=== PATIENT | male | born 1985 | race African-American/Black ===

== ENCOUNTER 2023-08-25 15:29 | Emergency (ER) | payer MEDICAID, SELFPAY ==
[2023-08-25 16:07] VITALS: BP 120/76; PULSE 88; RESP 20; TEMP 36.6; O2SAT 99; BMI 24.5
--- NOTE | 2023-08-25 16:16 | ED.GENADULT ---
HPI - General Adult General Chief complaint: Skin/Abscess/Foreign Body Stated complaint: Rash Time Seen by Provider: 08/25/23 19:11 Source: patient Mode of arrival: ambulatory History of Present Illness HPI narrative: Pt is a 37yo male who presents to the ED for evaluation of a persistent rash. Pt states the initial rash appeared about a year ago and has come and gone since then. He reports the rash was very itchy. He has utilized numerous prescription and over the counter medications to treat the rash and has found immediate benefit but the rash keeps coming back. He notes that this rash began last night after showering and is on his arms and chest. He put apple cider vinegar on it and that relieved the itching but caused burning. Pt currently is experiencing no pain, itching, or burning. Pt notes that he does a lot of walking with his back pack on. Related Data Previous Rx's Medication Instructions Recorded cephalexin 500 mg capsule 500 mg PO QID #28 caps 08/25/23 hydrocortisone 2.5 % topical cream 1 appl topical BID 5 days #30 grams 08/25/23 Allergies Allergy/AdvReac Type Severity Reaction Status Date / Time No Known Allergies Allergy Verified 08/25/23 19:51 Review of Systems Constitutional: Constitutional: Denies chills and Denies fever(s) Cardiovascular: Cardiovascular: Denies chest pain and Denies dyspnea Respiratory: Respiratory: Denies dyspnea Integumentary/Breasts: Skin/Breast: Reports pruritus, Reports erythema and Reports rash PMFSH Social History Social History Smoked in Last 30 Days: No Use of substances other than those prescribed or required for medical reasons: No Advance Directives: No Advance Directives Information Provided: No Physical Exam ED Vital Signs: Vital Signs - 24 hr 08/25/23 16:07 08/25/23 20:09 Temperature 97.8 F Pulse Rate 88 78 Respiratory Rate 20 14 Blood Pressure 120/76 137/83 Pulse Oximetry 99 98 Oxygen Delivery Method Room Air Room Air BMI result Body Mass Index 24.5 Const General: cooperative, no acute distress, alert and awake Orientation/consciousness: patient oriented x3 HENMT Head: Yes normal to inspection Ears: hearing grossly normal bilaterally General nose exam: Normal external nose present Resp Effort & Inspection: normal respiratory effort and able to speak in complete sentences Skin Other: Slightly erythematous papular rash mostly to the patient's trunk, bilateral chest wall. He had some lesions on his arms as well. Lesions: lesion noted (scabbed over sore on anterior ) Rashes: rashes noted (left arm and anterior chest ) Neuro General: patient oriented x3 Course Course Course Narrative: This is a rapid medical exam: Additional HPI, ROS, PE not included below will be deferred to primary provider. Patient is a 37-year-old male presenting to the emergency department with complaint of pruritic rash to chest and arms. Unable to specify length of time, stating that the rashes come and go. States that the rash to his left arm was associated with a spiritual experience. Denies fevers, denies drainage from rash. Denies any rash to palms, soles, or to oral mucosa. Patient unwilling to allow examination of rash to chest in triage, only willing to show pictures on phone. States has been treated for same rash before but feels he was not taken seriously by previous providers. Patient specifically requesting the name and badge number of triage staff. Patient will require evaluation in exam room. Medical Decision Making Medical Decision Making [facility] Narrative: Patient's rash is papular, slightly erythematous not significant for cellulitis but could be consistent with folliculitis versus eczema. Will treat for both. The patient is quite well appearing, no evidence of sepsis. Differential Diagnosis Differential Diagnoses: The differential diagnosis associated with the presentation includes (folliculitis, pressure sore, eczema, abscess, contact dermatitis) Discharge Plan Discharge Clinical Impression: Folliculitis Patient Disposition: Home, Self-Care Instructions: Eczema (ED), Folliculitis (ED) Additional Instructions: Take cephalexin to treat any skin infection Use hydrocortisone twice daily for the next 5 days to the affected areas Follow-up with your primary doctor Return for new or worsening symptoms Prescriptions: New cephalexin 500 mg capsule 500 mg PO QID Qty: 28 0RF hydrocortisone 2.5 % cream 1 appl topical BID 5 Days Qty: 30 0RF Interventions: ED Discharge Assessment Last Done: 08/25/23 20:09 Discharge Date/Time: 08/25/23 20:11
[2023-08-25 20:09] VITALS: BP 137/83; PULSE 78; RESP 14; O2SAT 98
== END 2023-08-25 20:11 | disposition home or self-care (01) ==
PROVIDERS: Emergency Provider Emergency Medicine
DX: L73.9 Follicular disorder, unspecified (principal); R21 Rash and other nonspecific skin eruption
CPT/HCPCS: 99283; 99284